=== PATIENT | female | born 1980 | race African-American/Black ===

== ENCOUNTER 2016-10-22 21:12 | Emergency (ER) | payer BC, OTHER ==
[2016-10-23 00:19] VITALS: BP 138/54
== END 2016-10-23 00:19 | disposition home or self-care (01) ==
LOC: ED 21:12
DX: L03.213 Periorbital cellulitis (principal); H00.015 Hordeolum externum left lower eyelid; Z88.8 Allergy status to other drugs, medicaments and biological substances
CPT/HCPCS: 82962; J0696; J1885

== ENCOUNTER 2017-06-14 20:12 | Emergency (ER) | payer BC, OTHER ==
[~2017-06-14] VITALS: Ht 157.5 cm; Wt 146.5 kg
[2017-06-14 20:17] VITALS: Ht 157.5 cm; Wt 146.5 kg
[2017-06-14 23:11] VITALS: BP 118/61
== END 2017-06-14 23:11 | disposition home or self-care (01) ==
LOC: ED 20:12
DX: N39.0 Urinary tract infection, site not specified (principal); N12 Tubulo-interstitial nephritis, not specified as acute or chronic
CPT/HCPCS: J1885

== ENCOUNTER 2017-12-22 22:44 | Emergency (ER) | payer BC ==
[~2017-12-22] VITALS: Ht 160 cm; Wt 141.5 kg
[2017-12-22 22:53] VITALS: Ht 160 cm; Wt 141.5 kg
[2017-12-23 00:47] LABS: BASOPHIL % 0.3 % (0-2); PLATELET COUNT 316 x10^3mcL (130-400)
[2017-12-23 00:53] LABS: RED CELL DISTRIBUTION WIDTH 15.1 % (11.5-14.5)
[2017-12-23 00:55] LABS: CALCIUM 8.8 mg/dL (8.5-10.1); CARBON DIOXIDE 26.9 mmol/L (21-32); CHLORIDE SERUM 104 mmol/L (98-107); CREATININE SERUM 0.9 mg/dL (0.6-1.0); GFR1 > 60 mL/min; GLUCOSE SERUM 94 mg/dL (74-106); POTASSIUM SERUM 4.3 mmol/L (3.5-5.1); SODIUM SERUM 139 mmol/L (136-145)
[2017-12-23 00:59] LABS: ALKALINE PHOSPHATASE 91 U/L (46-116); AST/SGOT 18 U/L (15-37); BILIRUBIN TOTAL 0.27 mg/dL (0.20-1.00); TOTAL PROTEIN, SERUM 7.2 g/dL (6.4-8.2)
[2017-12-23 01:00] LABS: ALBUMIN 3.2 g/dL (3.4-5.0)
[2017-12-23 01:15] LABS: ALT/SGPT 17 U/L (14-59)
[2017-12-23 01:57] VITALS: BP 132/78
== END 2017-12-23 01:57 | disposition home or self-care (01) ==
LOC: ED 22:44
PROVIDERS: Emergency Medicine
DX: J45.909 Unspecified asthma, uncomplicated (principal); Z88.5 Allergy status to narcotic agent
CPT/HCPCS: 36415; 83880; 85378; J1885; Q0092